=== PATIENT | male | born 1975 | race Caucasian/White ===

== ENCOUNTER 2022-04-05 17:16 | Outpatient (CLI) | payer OTHER | END 2022-04-05 17:17 | disposition home or self-care (01) | LOC: CSHLAB 17:16 | PROVIDERS: ATTEND Internal Medicine Gastroenterology | DX: Z20.822 Contact with and (suspected) exposure to COVID-19 (principal); Z12.11 Encounter for screening for malignant neoplasm of colon | CPT/HCPCS: U0003; U0005 ==

== ENCOUNTER 2022-04-07 07:01 | Day surgery (SDC) | payer OTHER ==
[2022-04-06 09:47] VITALS: BMI 26.3
[2022-04-07] MEDS ORDERED: Lidocaine 1% MPF 2 ML VIAL ONE (08:30)
[2022-04-07] MEDS ORDERED: Lidocaine 1% PF 5 ML VIAL ONE (08:59)
[2022-04-07] MEDS ORDERED: PROPOFOL 40 ML ONE (08:59)
[2022-04-07] MEDS ORDERED: PROPOFOL 20 ML ONE (09:19)
== END 2022-04-07 10:15 | disposition home or self-care (01) ==
LOC: CSHSDC 07:01
PROVIDERS: ATTEND Internal Medicine Gastroenterology
PROC: 0DBM8ZX Excision of Descending Colon, Via Natural or Artificial Opening Endoscopic, Diagnostic (ICD-10-PCS; principal; 2022-04-07)
PROC: 0DBH8ZX Excision of Cecum, Via Natural or Artificial Opening Endoscopic, Diagnostic (ICD-10-PCS; principal; 2022-04-07)
DX: Z12.11 Encounter for screening for malignant neoplasm of colon (principal); D12.0 Benign neoplasm of cecum; D12.4 Benign neoplasm of descending colon; K57.30 Diverticulosis of large intestine without perforation or abscess without bleeding; K64.9 Unspecified hemorrhoids; J30.9 Allergic rhinitis, unspecified; G56.03 Carpal tunnel syndrome, bilateral upper limbs; K21.9 Gastro-esophageal reflux disease without esophagitis
CPT/HCPCS: 88305; J2704